=== PATIENT | male | born 1970 ===

== ENCOUNTER 2018-08-15 10:47 | Day surgery (SDC) | payer OTHER ==
[2018-08-15] MEDS ORDERED: Iodixanol 320 MG/ML 100 ML BOTTLE IV ONE (11:40)
[2018-08-15] MEDS ORDERED: Lidocaine 2% Inj (20ml) ONE (11:40)
[2018-08-15] MEDS ORDERED: Iohexol 350mgl/ml 50 ML ONE (11:40)
[2018-08-15] MEDS ORDERED: Iodixanol 320 MG/ML 200 ML BOTTLE IV ONE (11:41)
[2018-08-15] MEDS ORDERED: Nitroglycerin 50mg in D5W 50 MG/250 ML BOTTLE IV ONE (11:41)
[2018-08-15] MEDS ORDERED: Verapamil 2 ML ONE (11:43)
[2018-08-15] MEDS ORDERED: Phenylephrine 10 mg/ml Inj ONE (11:43)
[2018-08-15] MEDS ORDERED: Adenosine 90 mg/30mL IV ONE (11:44)
[2018-08-15] MEDS ORDERED: Midazolam 2 MG/2 ML VIAL ONE ×3 (12:38→12:53)
[2018-08-15] MEDS ORDERED: Eptifibatide 20 mg/10mL Inj IVP ONE (13:24)
--- NOTE | 2018-08-15 14:28 | CP.PCM.DIS ---
Provider - Provider Attending physician: Roberto Fitzpatrick MD Consults: Pattern Marker: Dr. Fitzpatrick Time Spent in preparation of Discharge (in minutes): 35 Diagnosis - Discharge Diagnosis (1) NSTEMI (non-ST elevated myocardial infarction) Status: Resolved (2) Unstable angina Status: Resolved (3) Dyslipidemia Status: Chronic Hospital Course - Hospital Course Hospital Course: Cam Lynne DO, PGY-[address] Fitzpatrick Elvin is a pleasant 48 year old male with PMH off HTN, HLD, Meckel's diverticulum and enteritis who presented to [facility] ED on 128 in AM with mid-sternal burning chest pain that started when he awoke that morning. Further work up revealed positive troponin and he was treated for NSTEMI. He had a diagnostic left heart cath at [facility] on 08/14/18 which showed concerning areas in LAD and LCX. He was subsequently scheduled for PTCA of LAD and LCX at [facility] for today, 08/15/2018. He was transferred from [facility] to [facility] and underwent successful PTCA of LAD and LCX. On examination after PTCA, patient states he feels much better and states he has no further CP, SOB, diaphoresis, or nausea/vomiting. He is to be discharged from [facility] 3 hours after PTCA. Discharge Exam - Head Exam Head Exam: ATRAUMATIC, NORMOCEPHALIC - Eye Exam Eye Exam: EOMI, Normal appearance, PERRL - ENT Exam ENT Exam: Mucous Membranes Moist - Neck Exam Neck exam: Full Rom, Normal Inspection - Respiratory Exam Respiratory Exam: Clear to PA & Lateral, NORMAL BREATHING PATTERN - Cardiovascular Exam Cardiovascular Exam: REGULAR RHYTHM, RRR, +S1, +S2. absent: Diastolic murmur, Gallop, Rubs, Systolic Murmur - GI/Abdominal Exam GI & Abdominal Exam: Normal Bowel Sounds. absent: Tenderness - Extremities Exam Additional comments: L radial insertion site is clean, dry, intact, no hematoma or visual erythema/exudate - Back Exam Back exam: NORMAL INSPECTION - Neurological Exam Neurological exam: Alert, Oriented x3 - Psychiatric Exam Psychiatric exam: Normal Affect, Normal Mood - Skin Skin Exam: Dry, Intact, Warm Discharge Plan - Discharge Medications Prescriptions: Aspirin [Aspirin Chewable] 81 mg PO DAILY #90 chew Clopidogrel [Plavix] 75 mg PO DAILY #90 tab Ezetimibe [Zetia] 10 mg PO DAILY #90 tab Icosapent Ethyl [Vascepa] 2 gm PO BID #360 capsule Metoprolol Succinate [Toprol Xl] 25 mg PO DAILY #90 tab.er.24h Ramipril [Altace] 10 mg PO DAILY #90 cap Rosuvastatin Calcium [Crestor] 40 mg PO DAILY #90 tablet - Follow Up Plan Condition: GOOD Disposition: HOME/ ROUTINE Instructions: Chest Pain (DC), Chest Pain (GEN)
[2018-08-15 18:00] VITALS: PULSE 71; RESP 18; TEMP 98
[2018-08-15 19:34] VITALS: BP 125/73
== END 2018-08-15 22:46 | disposition short-term general hospital (02) ==
LOC: CATH 10:47 → 2RSO 13:51 → CATH 22:46
PROVIDERS: ATTEND Internal Medicine Interventional Cardiology
DX: I21.4 Non-ST elevation (NSTEMI) myocardial infarction (principal); I20.0 Unstable angina; E78.5 Hyperlipidemia, unspecified; I10 Essential (primary) hypertension; R73.03 Prediabetes; Q43.0 Meckel's diverticulum (displaced) (hypertrophic); K52.9 Noninfective gastroenteritis and colitis, unspecified; Z90.49 Acquired absence of other specified parts of digestive tract; Z82.49 Family history of ischemic heart disease and other diseases of the circulatory system; Z82.3 Family history of stroke
CPT/HCPCS: 92978; 93454; 99152; 99153; C1753; C1769 ×2; C1874 ×2; C1887; C1894; C9600; J0153; J1327; J1644 ×2; J2250; J3010; Q9966; Q9967